=== PATIENT | female | born 1975 | race Two or more races ===

== ENCOUNTER 2021-07-23 19:00 | Emergency (ER) | payer MEDICARE, MEDICAID, SELFPAY ==
--- NOTE | ~2021-07-23 | XR_ITS ---
EXAMINATION: XR ELBOW, LEFT CLINICAL INFORMATION: Fall COMPARISON: None TECHNIQUE: 4 plain film views of the left elbow. FINDINGS: Elbow joint effusion is noted. Minimally displaced fracture through the radial head and extending to the radial neck. Minimal step-off to the articular surface. Otherwise bones are in normal anatomic alignment. XR/XR elbow LT 2V IMPRESSION: Minimally displaced radial head fracture with associated elbow joint effusion.
[2021-07-23 19:21] VITALS: BP 148/83; PULSE 70; RESP 18; TEMP 37; O2SAT 100; BMI 31.2
--- NOTE | 2021-07-23 19:47 | ED_ITS ---
HPI - Extremity Problem General Chief complaint: Extremity Injury, Upper Stated complaint: broken arm? Time Seen by Provider: 07/23/21 19:47 Source: patient Mode of arrival: ambulatory Limitations: no limitations History of Present Illness HPI Narrative: 46 year old female presents with left arm/elbow pain X2 hours. Patient tells me she fell off of a hover board onto an outstreched arm and since then has been experiencing 10 of 10 pain to the elbow, she tells me she is unable to move and at times she feels numbness and tingling to her fingers. No surgeries on the left-hand side. Patient is right-hand dominant. MD Complaint: extremity pain Onset (ago): hour(s) (2) Pain Consistency: constant Location: left Severity scale (1-10): 10 Quality: sharp and constant Radiation: none Relieving factors: immobilization Exacerbating factors: range of motion Associated symptoms: denies other symptoms Related Data Previous Rx's Medication Instructions Recorded oxycodone 5 mg capsule 5 mg PO BID PRN #8 cap 07/23/21 Allergies Allergy/AdvReac Type Severity Reaction Status Date / Time No Known Allergies [NKA] Allergy Verified 07/23/21 19:20 Review of Systems Review of Systems: Constitutional : No Weight loss, No Fever, No Chills, No Fatigue, No Malaise ENT/Mouth : No sore throat, No Rhinorrhea Eyes: No Eye Pain, No Swelling, No Redness Cardiovascular : No Chest Pain, No SOB, No Dyspnea on Exertion, No Orthopnea, No Edema, No Palpitations Respiratory : No Cough, No Sputum, No Wheezing Gastrointestinal : No Nausea, No Vomiting, No Diarrhea, No Constipation, No abdominal Pain, No Hematochezia, No Melena Genitourinary : No Dysuria, No Urinary Frequency, No Hematuria, Musculoskeletal : + joint pain, No Myalgias, No Joint Swelling Skin : No Skin Lesions, No rash Neuro : No Weakness, No Numbness, No Dizziness, No Headache All other systems reviewed and are negative Yes all other systems are reviewed and are negative [facility] Past Medical History Attestation statement: The following information was validated with the patient. Source: old records reviewed and nursing notes reviewed Social History Social History Advance Directives: No Advance Directives Information Provided: Yes Patient : No Physical Exam Vital Signs: Vital Signs: Last Vital Signs Temp 98.6 F 07/23/21 19:21 Pulse 70 07/23/21 19:21 Resp 18 07/23/21 19:21 BP 148/83 H 07/23/21 19:21 Pulse Ox 100 07/23/21 19:21 BMI result Body Mass Index 31.2 VSS Appearance: Alert.? Oriented X3.? No acute distress.? Head: Normocephalic, atraumatic, no step-offs or deformities Eyes: Pupils equal, round and reactive to light.? ENT: Pharynx normal.? Neck: Normal inspection.? Neck supple.? CVS: Normal heart rate and rhythm.? Pulses normal.? Respiratory: No respiratory distress.? Breath sounds normal.? Abdomen: Soft and nontender.? Skin: Skin warm and dry.? Normal skin color.? Normal skin turgor.? Extremities: 5/5 strength to right upper and b/l lower extremities, + decreased strength and pain with rom of left elbow, pain with supination and pronation on left side. No wrist drop bilaterally. Sensation and motor intact b/l however. No overlying skin changes. Pain with palpation over radial aspect of elbow. No evident ligament or tendon involvement Back: No midline tenderness, no C-spine tenderness, full range of motion, no CVA tenderness bilaterally Neuro: Oriented X 3.? No motor deficit.? No sensory deficit. Course Reevaluation(s) Reevaluation #1: X-ray shows a minimally displaced radial head fracture with associated elbow joint effusion. Will TT ortho. Time: 19:53 Reevaluation #2: Hallie Waldrop recommends a sugartong splint and outpatient follow up with ortho. Time: 20:07 Reevaluation #3: Sugar-tong splint placed, patient tolerated procedure well. Oxycodone has been sent to her pharmacy. Here she has been given oxycodone. Patient will follow-up with orthopedics outpatient. I have advised her to return to the emergency department with new or worsening symptoms. Time: 20:16 MDM - Extremity (Nontraumatic) MDM Narrative Medical decision making narrative: 1953 46 year old f presents w/ left elbow pain s/p falling off a hover board. She reports intermittent paresthesias and numbness. PE 5/5 strength to right upper and b/l lower extremities, + decreased strength and pain with rom of left elbow, pain with supination and pronation on left side. No wrist drop bilaterally. Sensation and motor intact b/l however. No overlying skin changes. Pain with palpation over radial aspect of elbow. Plan Xray Medical Records Attestation: I reviewed the patient's medical records. Lab Data Attestation: I reviewed the patient's lab results. Critical Care Time Critical Care Time Critical Care Time: No Discharge Plan Discharge Clinical Impression: Closed fracture of radial head Patient Disposition: Home, Self-Care Instructions: Arm Fracture in Adults (ED), Elbow Fracture (ED) Additional Instructions: Take your medications as prescribed. If you were prescribed antibiotics today, it is important that you take your medication to their entirety, do not skip any doses, do not finish them early. Follow-up with your primary care provider this week. Return to the emergency department with new or worsening symptoms. In case of emergency call 911 Please wear your splint, do not get it wet. Follow-up with orthopedics within the next few days. Pain medication has been sent to pharmacy please do not drive or operate machinery with this medication. If you do not want to take this pain medication you can take ibuprofen every 6 hours, Tylenol every 4. I attest that I have reviewed patients [place], and at the time prescribing the patient a controlled substance is appropriate based off of patients diagnosis and treatment plan. Prescriptions: New oxycodone 5 mg capsule 5 mg PO BID PRN (Reason: pain) Qty: 8 RF: 0 Referrals: Shilo Grant MD [Primary Care Provider] - 2 days Kristy Duque MD [Physician] - 2 days Stand Alone Forms: Work/School Release
[2021-07-23] MEDS: oxyCODONE HCl Immed Release 5 MG TABLET PO (20:45)
== END 2021-07-23 20:50 | disposition home or self-care (01) ==
PROVIDERS: Emergency Provider Internal Medicine; PCP Internal Medicine
DX: S52.92XA Unspecified fracture of left forearm, initial encounter for closed fracture (principal); M25.522 Pain in left elbow; W01.0XXA Fall on same level from slipping, tripping and stumbling without subsequent striking against object, initial encounter; Y93.9 Activity, unspecified; Y92.9 Unspecified place or not applicable; Y99.9 Unspecified external cause status
CPT/HCPCS: 73070; 99284

== ENCOUNTER → 2021-07-25 13:42 | Outpatient (BNVA) | payer MEDICARE, MEDICAID, SELFPAY | PROVIDERS: PCP Internal Medicine; Visit Provider Physician Assistant | DX: S52.125A Nondisplaced fracture of head of left radius, initial encounter for closed fracture (principal) | CPT/HCPCS: 99202 ==

== ENCOUNTER 2021-08-08 06:35 | Outpatient (REF) | payer MEDICARE, MEDICAID, SELFPAY ==
--- NOTE | ~2021-08-08 | XR_ITS ---
EXAMINATION: XR ELBOW, LEFT CLINICAL INFORMATION: Left elbow pain. COMPARISON: 07/23/2021. TECHNIQUE: AP, lateral, and oblique views of the left elbow. FINDINGS: There is an intra-articular fracture at the volar/lateral half of the radial head with minimal articular cortical depression (1 mm). This fracture is unchanged as compared to prior. No new fractures are identified. Small elbow joint effusion is improved as compared to prior. Joint spaces are normal. XR/XR elbow LT min 3V IMPRESSION: Unchanged alignment of the intra-articular radial head fracture.
== END 2021-08-08 06:36 | disposition home or self-care (01) ==
LOC: HO.HOSX 06:35
PROVIDERS: Visit Provider Physician Assistant
DX: S52.123D Displaced fracture of head of unspecified radius, subsequent encounter for closed fracture with routine healing (principal)
CPT/HCPCS: 73080; 99212

== ENCOUNTER 2021-08-26 09:40 | Outpatient (RCR) | payer MEDICARE, MEDICAID, SELFPAY ==
--- NOTE | 2021-08-26 12:12 | MHC.OT.OEV ---
[address] [phone] F: [phone] Occupational Therapy Evaluation Diagnosis: intra-articular radial head fracture, non-displaced Date of Onset: 07/23/21 Attending Provider: Kavitha Martin PA-C, MD Follow Up Appointment: 09/05/21 History of Current Condition: 07/23/21 Pt presented to the ED for falling off a hoverboard and landing on her left arm. X-Ray showed a minimally displaced radial head fx. Pt put in a sugar tong splint. 07/25/21 Orthopedic consult, pt put into sling, pain with supination/pronation. No lifting, referred to therapy services. Significant Medical History: Thyroid cancer - January 2016 Precautions/Contraindications: No lifting > cell phone Patient Goals: Get back to normal life with no pain with activity. 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 Living Situation, Family and/or Social Support: Lives in house with kids. 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 Sleep: No trouble sleeping Driving: Drives with right hand, because grabbing wheel and twisting is painful for left elbow. Pain Assessment Pain Score: 0 Pain Scale Used: Pain Location and Description: No pain at rest. When aggravated 8/10 pain. Pain in extensors, cubital fossa and lateral elbow. Sensitivity to cold. Aggravating Factors: twisting mop, sweeping floors, gripping/twisting jars Alleviating Factors: no trial of ibuprofen no trial of heat or ice Skin and Soft Tissue Assessment Skin and Soft Tissue: Swelling Comments: Mild edema of lateral elbow Nerve assessment Ulnar Nerve: WNL Median Nerve: WNL Radial Nerve: WNL Comments: Pain in left thumb when testing for radial nerve, thumb abd resistance. Sensory Assessment Light Touch: WFL Edema Assessment Upper Extremity: Left Impaired Lower Extremity: Comments: Some edema in left lateral elbow Dexterity Assessment Dexterity: WNL AROM(PROM) Strength Cervical Cervical Flexion: Cervical Extension: Cervical Lateral Flexion: Cervical Rotation: Comments: WNL Shoulder Flexion: Extension: Abduction: Internal Rotation: External Rotation: Comments: WFL, some discomfort w/ full flexion due to stretching Flexion: Extension: Abduction: Internal Rotation: External Rotation: Comments: Elbow Flexion: L 125 Extension: L 13 Pronation: L 72 Supination: L 90 Comments: Pt observed to have functional range in pro/sup, no pull or pain with range/movement Flexion: Extension: Pronation: Supination: Comments: Wrist Flexion: Extension: Ulnar Deviation: Radial Deviation: Comments: WFL Flexion: Extension: Ulnar Deviation: Radial Deviation: Comments: Thumb Thumb CMC Flexion: Thumb MCP Flexion: Thumb IP Flexion: Radial Abduction: Palmar Abduction: Laporte (Kapandji 0-10): Comments: WFL Digits Index MCP: PIP: DIP: Long MCP: PIP: DIP: Ring MCP: PIP: DIP: Small MCP: PIP: DIP: Comments: WFL B/L'ly B/L D4 swam neck deformities Gross Grasp: R 59 L 35 Lateral Pinch: Two-Point Pinch: Three-Jaw Amaury: Comments: submaximal rolled gold plater Patient Education Primary Language: [facility] Required: No Current Knowledge: Understands information with skills for self-management Teaching Method: Demonstration Handouts Education Needs Identified on Evaluation: ADL's Disease Information Exercise Pain Safety How did patient/family demonstrate learning? Patient demonstrates Patient verbalizes Barriers to Learning: None Readiness for Learning: Accepting Who was educated? Patient Comments: Plan of Care Assessment: 46 yo female who presented to the ED on 07/23/21 for falling off a hover board. Pt had left intra-articular radial head fracture - non-displaced. Pt was put in a sugar tong splint and then a sling during ortho consult on 07/25/21. Pt reports she no longer wears the sling. She is pain free at rest and has 8/10 pain with aggravating activities such as wringing out a mop, opening jars and sweeping floors. Pt with slightly decreased end range elbow flex and ext, although WFL and has some pain with full elbow ext and full shoulder flex. Decreased rolled gold plater strength on left side. Pt to cont OT services for pain management, increase strength with functional tasks, and continue to improve AROM with decreased pain. STG Duration: 2 weeks Short Term Goals: Pt to have good follow through with HEP Pt to have left elbow ext <10 degrees Pt to increase rolled gold plater strength to >40lbs Pt to report pain <3/10 during activity LTG Duration: 4 weeks Java Enterprise Architect Goals: Pt to increase rolled gold plater strength to >50lbs Pt Quickdash <15 Pt to report pain <1/10 during activity Elbow ROM within 5 degrees of right side for flex, ext, pro and sup Frequency and Duration: The patient will be seen 2x/week for 4 weeks Treatment Plan: Therapeutic Exercise Therapeutic Activity Home Exercise Program Patient Education Edema Control ADL Training MHP Joint Mobilization Soft Tissue Mobilization Kinesiotaping Electronically Signed By: Alexa Liu OT/s Reviewed/agree with student documentation: Yes Therapist: Ankita Benavidez OTR/L CHT Please sign and return to therapist, Thank you for your referral.
--- NOTE | 2021-09-02 11:13 | MHC.OT.DC ---
[address] [phone] F: [phone] Occupational Therapy Discharge Note Provider: Kavitha Martin PA-C Diagnosis: intra-articular radial head fracture, non-displaced Date of Discharge: 09/02/21 Treatments to Date: 1 Cancellations to Date: 1 Discharge Status: Patient Elected to Stop Discharge Summary: Madelaine was seen for initial OT assessment last week and given HEP and recommendations. Pt reported low pain and able to functionally complete all tasks. Pt elected to d/c self, as she is Ind with self-management. Electronically Signed By: Alexa Liu OT/s Reviewed/agree with student documentation: Yes Therapist: Ankita Benavidez OTR/L CHT Please Sign and return to therapist, thank you for your referral.
== END 2021-09-02 11:13 | disposition home or self-care (01) ==
LOC: HO.OT 09:40
PROVIDERS: PCP Internal Medicine; Visit Provider Physician Assistant
DX: S52.123A Displaced fracture of head of unspecified radius, initial encounter for closed fracture (principal)
CPT/HCPCS: 97110; 97140; 97165

== ENCOUNTER 2021-09-05 08:32 | Outpatient (REF) | payer MEDICARE, MEDICAID, SELFPAY ==
--- NOTE | ~2021-09-05 | XR_ITS ---
EXAMINATION: XR ELBOW, LEFT CLINICAL INFORMATION: Left elbow pain COMPARISON: 08/08/2021 TECHNIQUE: AP, lateral, and oblique views of the left elbow. FINDINGS: Redemonstration of the radial head fracture with unchanged alignment from prior. The fracture line remains evident. Joint spaces at the elbow are maintained. No elbow joint effusion. The soft tissues are unremarkable. XR/XR elbow LT min 3V IMPRESSION: Unchanged alignment of the intra-articular radial head fracture.
== END 2021-09-05 08:33 | disposition home or self-care (01) ==
LOC: HO.HOSX 08:32
PROVIDERS: Visit Provider Physician Assistant
DX: S52.123D Displaced fracture of head of unspecified radius, subsequent encounter for closed fracture with routine healing (principal)
CPT/HCPCS: 73080; 99212

== ENCOUNTER 2024-03-15 09:15 | Observation (INO) | payer MEDICARE, MEDICAID, SELFPAY ==
--- NOTE | 2024-03-15 | ECG_ITS ---
Test Reason : CP Blood Pressure : / mmHG Vent. Rate : 051 BPM Atrial Rate : 051 BPM P-R Int : 172 ms QRS Dur : 090 ms QT Int : 440 ms P-R-T Axes : 023 017 020 degrees QTc Int : 405 ms Sinus bradycardia Otherwise normal ECG No previous ECGs available Referred By: Generic ED Physician Electronically Signed By:JOSE CRUZ LOVETT
--- NOTE | ~2024-03-15 | XR_ITS ---
EXAMINATION: XR CHEST CLINICAL INFORMATION: Chest pain COMPARISON: None available. TECHNIQUE: 2 views of the chest were obtained. FINDINGS: No focal consolidation. No pneumothorax. Trachea is midline. Cardiac mediastinal silhouette is not enlarged. No large pleural effusion. Osseous structures are intact. Soft tissues are unremarkable. Surgical clips right upper abdomen. XR/XR chest 2V IMPRESSION: No acute cardiopulmonary process. Electronically signed by: Paula Baca MD 03/15/2024 01:01 PM EDT
[2024-03-15 09:23] VITALS: BP 166/100; BP 175/103; PULSE 54; PULSE 58; RESP 15; TEMP 36.6; O2SAT 100; O2SAT 99; BMI 29.0
--- NOTE | 2024-03-15 09:40 | PC.NURSE ---
Pt BIBA for CP starting this morning around 0830am. Pt states she was at work this morning when the acute, sharp, cp started. She states it radiates to her back and down her left arm, numbness/tingling in her left arm/hand. CMS intact, able to feel sensation in her left arm/hand. No cardiac hx, she has never had this pain before. She states the pain worsens with deep inspiration, and is slightly alleviated while sitting up. A/ox4, respirations even and unlabored, no increased wob/sob noted, s1 and s2 heard, pt sinus dana on quality assurance monitor chassis, HR- 50s, abdomen soft, non-tender. Plan for labs and ekg, call pfeiffer within reach, all needs met at this time.
[2024-03-15 10:00] LABS: MANUAL DIFF FLAG NO
[2024-03-15 10:02] LABS: Basophils Percent Auto 0.3 % (0-2); Eosinophils Absolute Auto 0.1 X10*3/uL (0.0-0.4); Eosinophils Percent Auto 1.9 % (0-4); Hematocrit 37.4 % (37.0-47.0); Hemoglobin 12.9 g/dl (12.0-16.0); Imm Gran Abs Auto 0.02 X10*3/uL (0.00-0.03); Imm Gran Pct Auto 0.3 % (0.0-0.4); Lymphocytes Absolute Auto 2.5 X10*3/uL (1.2-4.9); Lymphocytes Percent Auto 42.3 % (20-40); Mean Corpuscular HGB Conc 34.5 g/dl (31.0-35.0); Mean Corpuscular Hemoglobin 32.2 pg (27.0-33.0); Mean Corpuscular Volume 93.3 fL (80.0-98.0); Mean Platelet Volume 9.4 fL (9.4-12.3); Monocytes Absolute Auto 0.4 X10*3/uL (0.1-1.2); Monocytes Percent Auto 6.8 % (2-11); Neutrophils Absolute Auto 2.8 x10*3/uL (2.0-8.3); Neutrophils Percent Auto 48.4 % (45-73); Platelet Count 219 X10*3/uL (160-400); Red Blood Count 4.01 X10*6/uL (4.20-5.50); Red Cell Distribution Width 13.2 % (11.0-16.0); White Blood Count 5.9 X10*3/uL (4.8-10.8)
--- NOTE | 2024-03-15 10:07 | ED_ITS ---
HPI - Chest Pain General Chief Complaint: Chest Pain Stated Complaint: CP, HTN Time Seen by Provider: 03/15/24 10:02 Source: patient and RN notes reviewed Mode of arrival: ambulatory Limitations: no limitations History of Present Illness ED Provider: Ju Yun PA-C HPI narrative: This is a 48-year-old female, with a past medical history of thyroid cancer, HTN, smoker, who presents emergency department with acute onset chest pain which started at 8:30 a.m. this morning while she was at work. Patient states that she had a normal day and was at work when suddenly she developed a sharp left- sided chest pain with numbness down her left arm and tingling into her fingers with associated diaphoresis and nausea. She states that the sharp chest pain lasted for approximately 10-15 minutes. The ambulance was called and she took aspirin. EMS also gave her nitro. She states that the pain alleviated after several minutes after taking the nitroglycerin. She states that she has not had sharp pain in her chest since. She now reports just a soreness sensation in the left side of her chest and into her left arm. She states that her mother had a heart attack at age 52. Upon my assessment, she only is complaining of some soreness in her chest, otherwise no other pain. She denies any recent travel, surgeries, hospitalizations. No history of blood clots. No other complaints or concerns at this time. MD complaint: chest pain and chest discomfort Onset (ago): minute(s) Timing of current episode: episodic Prior episodes: No Onset: during rest Pain location: left chest Pain radiation: left arm Severity: moderate Quality: aching Relieving factors: nitroglycerin Exacerbating factors: nothing Treatment prior to arrival: aspirin and nitroglycerin Risk Factors Coronary artery disease risk factors: none Thoracic aortic dissection risk factors: none Related Data On Oral Contraceptives: No Home Medications ?Medication ?Instructions ?Recorded ?Confirmed levothyroxine 175 mcg tablet 175 mcg PO MOTUWETHFRSA@62903/15/24 03/15/24 levothyroxine 175 mcg tablet 350 mcg PO WILDER@62903/15/24 03/15/24 losartan 50 mg tablet 50 mg PO DAILY 03/15/24 03/15/24 melatonin 5 mg tablet 5 mg PO BEDTIME PRN Insomnia 03/15/24 03/15/24 Allergies Allergy/AdvReac Type Severity Reaction Status Date / Time No Known Allergies [NKA] Allergy Verified 03/15/24 09:26 Review of Systems 2 Review of Systems: Yes all other systems are reviewed and are negative Constitutional: Constitutional: Reports as per [facility] Past Medical History Attestation statement: The following information was validated with the patient. 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 Physical Exam 2 Vital Signs: Vital Signs: Last Vital Signs Temp 98.1 F 03/15/24 19:53 Pulse 55 03/15/24 19:53 Resp 20 03/15/24 19:53 BP 162/68 H 03/15/24 19:53 Pulse Ox 99 03/15/24 19:53 O2 Del Method Room Air 03/15/24 19:53 BMI result Body Mass Index 29.0 Const: General: cooperative, comfortable and no acute distress O rientation/consciousness: patient oriented x3 Limitations: no limitations HEENT: Head: Yes normal to inspection, Yes normocephalic and Yes atraumatic Ears: hearing grossly normal bilaterally General nose exam: Normal external nose present Face and sinus: Yes normal facial exam Mouth: Normal oral and palatal mucosa present, oropharynx normal and moist mucous membranes Throat: Yes posterior oropharynx normal Eyes: General: appearance normal, both eyes and all related structures E yelids: Yes eyelids normal Conjunctivae: conjunctivae normal Sclerae: s clerae normal Pupils: Equal, round and reactive pupils present EOM: EOMs intact bilaterally Neck: Neck: Yes normal visual inspection, Yes full ROM and Yes no lymphadenopathy Lymphatic: no lymphadenopathy noted Chest: Other: Tenderness palpation along the left anterior chest wall. Chest palpation & inspection: normal inspection of the chest Resp: Effort & Inspection: normal respiratory effort and able to speak in complete sentences Auscultation: clear to auscultation bilaterally, no crackles, no rales, no rhonchi and no wheezes Cardio: Rate: regular rate Rhythm: regular rhythm Heart sounds: S1 normal heart sound present and S2 normal heart sound present GI: Inspection: Yes normal to inspection Skin: General skin exam: no rashes or lesions noted Trauma: no lacerations or abrasions Wounds: no wounds Neuro: General: patient oriented x3 and moves all extremities Cranial nerves: Yes Equal, round and reactive pupils present Extrem: Other: No no lower extremity edema noted. General: Yes normal to inspection Right upper extremity: normal to inspection Left upper extremity: normal to inspection Right lower extremity: normal to inspection Left lower extremity: normal to inspection Course Reevaluation(s) Reevaluation #1: Second troponin returns, is 5.3. Chest x-ray revealing no acute cardiopulmonary process. Discussed case with teacher hearing impaired, Dr. Buck. Given patient had improvement after nitro, continues to have soreness to her left side of her chest, with a high heart score without any formal cardio diagnostic test performed, she would benefit from hospitalization. I discussed case with my attending physician, Dr. Courtney who is in agreement. I discussed case with Dr. Buck as well as hospitalist. Dr. Buck does not feel as though this is cardiac in nature. Hospitalist does not see a need for hospitalization at this time. I discussed in detail with my attending physician Dr. Courtney and given risk factors, presentation, heart score, difficulty following up with PCP, Cardiology, patient will benefit with hospitalization. Time: 14:29 Reevaluation #2: Attending addendum: Case discussed with me. I saw the patient in real time. She states today at work she had sudden onset severe left sided stabbing chest pain that radiated into her left arm causing transient numbness. Associated with whole body diaphoresis and nausea without vomiting. Patient notified her co- workers who called EMS and gave her baby aspirin. On EMS arrival patient was still having pain. She was treated with SL Nitro with resolution of pain within 2 - 3 min. She remained with a deep tightness to her left-sided chest and left- upper back similar to a squeezing pain. She denies any history of prior similar symptoms. She has a concerning cardiac history in a mother with a myocardial infarction at age [age] years old. The patient has a history of HTN and is a smoker. I discussed the patient with cardiology Dr. Buck. I discussed the patient with the hospitalist. At this time I recommend admission for concerning cardiac symptoms/history, heart score 5, continued chest discomfort, and lack of reliable follow up with out-patient PCP/Cardiology. Patient is in agreement with plan for admission and further cardiac testing. Time: 16:24 Medications Administered Generic Name Dose Route Start Last Admin Trade Name Greyson PRN Reason Stop Dose Admin Enoxaparin Sodium 40 mg 03/15/24 17:00 03/15/24 17:16 Enoxaparin Sodium 40 Mg/0.4 Ml Syringe SUBCUT 40 mg Q24H VIVIANA Administration Medical Decision Making Medical Decision Making [facility] Narrative: This is a 48-year-old female who presents emergency department with complaints of acute onset left-sided chest pain. On arrival, blood pressure elevated 166/100, all other vital signs within normal limits. EKG was performed prior to my assessment, normal sinus rhythm with no ST elevation or depression. She is a smoker, history of hypertension. She is being worked out to see if she has hyperlipidemia as well. No cardiac history. Story is concerning for ACS. She has a heart score of 5. Patient reports that she is not having any stabbing pain anymore, states that she does have some soreness to the left side of her chest. Plan: Labs, EKG, CXR, dimer, serial trops, fondant puff maker. Differential Diagnosis Differential Diagnoses: The differential diagnosis associated with the presentation includes ACS, STEMI, NSTEMI, costochondritis, pneumonia, pneumothorax, PE Admission/Observation Consideration of admission/observation: Escalation of care including admission/observation considered Lab Data [facility] Lab Attestation statement: I reviewed the patient's lab results. No leukocytosis, stable H&H, troponin 3.7, repeat 5.3 03/15/24 09:57 03/15/24 09:57 Labs: Lab Results 03/15/24 03/15/24 Range/Units 09:57 13:08 WBC 5.9 (4.8-10.8) X10*3/uL RBC 4.01 L (4.20-5.50) X10*6/uL Hgb 12.9 (12.0-16.0) g/dl Hct 37.4 (37.0-47.0) % MCV 93.3 (80.0-98.0) fL MCH 32.2 (27.0-33.0) pg MCHC 34.5 (31.0-35.0) g/dl RDW 13.2 (11.0-16.0) % Plt Count 219 (160-400) X10*3/uL MPV 9.4 (9.4-12.3) fL Immature Gran % (Auto) 0.3 (0.0-0.4) % Neut % (Auto) 48.4 (45-73) % Lymph % (Auto) 42.3 H (20-40) % [place] % (Auto) 6.8 (2-11) % Eos % (Auto) 1.9 (0-4) % Baso % (Auto) 0.3 (0-2) % Lymph # (Auto) 2.5 (1.2-4.9) X10*3/uL [place] # (Auto) 0.4 (0.1-1.2) X10*3/uL Eos # (Auto) 0.1 (0.0-0.4) X10*3/uL Baso # (Auto) 0.0 (0.0-0.2) X10*3/uL Abs Immat Gran (auto) 0.02 (0.00-0.03) X10*3/uL Absolute Neuts (auto) 2.8 (2.0-8.3) x10*3/uL Absolute Nucleated RBC 0.000 (0.0-0.012) X10*3/uL Nucleated RBC % (auto) 0.0 (0.0-0.2) /100WBC PT 12.0 (11.1-13.3) SEC INR 1.0 (0.9-1.1) D-Dimer High Sensitivty 224 NG/ML Sodium 141 (135-145) mmol/L Potassium 4.0 (3.3-5.1) mmol/L Chloride 109 H (96-108) mmol/L Carbon Dioxide 26 (22-29) mmol/L Anion Gap 10 L (12-20) BUN 9 (9-16) mg/dL Creatinine 0.70 (0.5-1.4) mg/dL Estim Creat Clear Calc 92.8 Estimated GFR > 60 Random Glucose 106 (60-115) mg/dL Calcium 9.6 (8.4-10.2) mg/dL Magnesium 2.0 (1.6-2.6) mg/dL Total Bilirubin 0.3 (0.0-1.0) mg/dL AST 18 (5-31) U/L ALT 12 (0-31) U/L Alkaline Phosphatase 76 (39-117) U/L Troponin I High Sens 3.7 5.3 (<3.5-17.0) ng/L Total Protein 7.4 (6.5-8.0) g/dL Albumin 4.5 (3.5-5.0) g/dL Independent Interpretation I performed an independent interpretation of an: EKG Interpretation: EKG sinus bradycardic at 51bpm, no ST elevation or depression. Repeat EKG: sinus bradycardic at 48bpm, no ST elevation or depression Vent. Rate : 051 BPM Atrial Rate : 051 BPM P-R Int : 172 ms QRS Dur : 090 ms QT Int : 440 ms P-R-T Axes : 023 017 020 degrees QTc Int : 405 ms Sinus bradycardia Otherwise normal ECG No previous ECGs available Vent. Rate : 048 BPM Atrial Rate : 048 BPM P-R Int : 178 ms QRS Dur : 088 ms QT Int : 468 ms P-R-T Axes : 013 009 004 degrees QTc Int : 418 ms Sinus bradycardia Otherwise normal ECG When compared with ECG of 15-MAR-2024 09:21, No significant change was found Radiology Impression Discussion of test interpretation with radiology: I have reviewed the radiologist's reading. Radiologist Impression: XR/XR chest 2V IMPRESSION: No acute cardiopulmonary process. Electronically signed by: Paula Baca MD 03/15/2024 01:01 PM EDT RP Dictated By: Paula Baca MD Scores Heart Score History: -2- highly suspicious ECG: -0- normal Age: -1- >45 - <65 Risk factory: -2- 3 or more risk factors or treated atherosclerosis Troponin: -0- < or = normal limit Score: 5 Risk: 16.6% Critical Care Time Critical Care Time Critical Care Time: Yes Total Critical Care Time: 35 Attestation: I have personally provided critical care time exclusive of time spent on separately billable procedures. Time includes review of lab data, radiology results, discussion with consultants, and monitoring for potential decompensation. Intervention performed as documented. Discharge Plan Discharge Clinical Impression: Atypical chest pain Patient Disposition: Admitted As Inpatient
[2024-03-15 10:22] LABS: Alanine Aminotransferase 12 U/L (0-31); Albumin Level 4.5 g/dL (3.5-5.0); Alkaline Phosphatase 76 U/L (39-117); Anion Gap 10 (12-20); Aspartate Amino Transferase 18 U/L (5-31); Bilirubin Total 0.3 mg/dL (0.0-1.0); Blood Urea Nitrogen 9 mg/dL (9-16); Calcium 9.6 mg/dL (8.4-10.2); Carbon Dioxide 26 mmol/L (22-29); Chloride 109 mmol/L (96-108); Creatinine Clr Calc Pharmacy 92.8; Estimated Glomerular Filt Rate > 60; Glucose Random 106 mg/dL (60-115); Sodium 141 mmol/L (135-145); Total Protein 7.4 g/dL (6.5-8.0)
[2024-03-15 10:30] VITALS: BP 142/77; PULSE 48; RESP 12; O2SAT 98
[2024-03-15 10:30] LABS: Troponin-I High Sensitivity 3.7 ng/L (<3.5-17.0)
[2024-03-15 11:44] LABS: D Dimer High Sensitivity 224 NG/ML
--- NOTE | 2024-03-15 11:53 | ECG_ITS ---
Test Reason : CP Blood Pressure : / mmHG Vent. Rate : 048 BPM Atrial Rate : 048 BPM P-R Int : 178 ms QRS Dur : 088 ms QT Int : 468 ms P-R-T Axes : 013 009 004 degrees QTc Int : 418 ms Sinus bradycardia Otherwise normal ECG When compared with ECG of 15-MAR-2024 09:21, No significant change was found Referred By: Ju Yun Electronically Signed By:JOSE CRUZ LOVETT
[2024-03-15 13:40] LABS: Troponin-I High Sensitivity 5.3 ng/L (<3.5-17.0)
[2024-03-15 15:23] VITALS: BP 165/84; PULSE 52; RESP 16; TEMP 36.8; O2SAT 97
--- NOTE | 2024-03-15 16:48 | P.HPHOSP_ITS ---
History of Present Illness Date of Service: 03/15/24 Chief Complaint: Chest pain 48-year-old female past medical history of thyroid cancer status post resection hypertension who presents to the emergency room with acute onset of left-sided chest pain at 08:30 this morning. She states the pain lasts for approximately 10-15 minutes and then resolved. She denies any other associated cardiac symptoms. Workup in the emergency room failed to demonstrate any significant abnormalities and EKG or enzymes however patient will be admitted overnight for observation enzymes will be trended in a.m. 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 Meds Allergies Allergy/AdvReac Type Severity Reaction Status Date / Time No Known Allergies [NKA] Allergy Verified 03/15/24 09:26 Home Medications ?Medication ?Instructions ?Recorded ?Confirmed ?Last Taken ?Type losartan 50 mg tablet 50 mg PO DAILY 03/15/24 Unknown History Physical Exam 2 Vital Signs and Narrative: Vital Signs: Last Vital Signs Temp 98.2 F 03/15/24 15:23 Pulse 52 03/15/24 15:23 Resp 16 03/15/24 15:23 BP 165/84 H 03/15/24 15:23 Pulse Ox 97 03/15/24 15:23 O2 Del Method Room Air 03/15/24 15:23 BMI result Body Mass Index 29.0 Const: Other: Awake alert oriented x3 no acute distress Resp: Other: Clear to auscultation bilaterally no rales rhonchi or wheezes Cardio: Other: No S4; positive S1-S2; no S3 murmurs rubs or gallops GI: Other: Soft nontender nondistended normoactive bowel sounds Neuro: Other: Cranial nerves 2 through 12 grossly intact as tested. Motor 5 out of 5 all extremities. Sensation intact. Cognition appropriate. Gait steady Extrem: Other: No edema bilaterally Results Labs 03/15/24 09:57 03/15/24 09:57 Labs: Laboratory Results - last 24 hr 03/15/24 03/15/24 09:57 13:08 MCV 93.3 MCH 32.2 MCHC 34.5 RDW 13.2 Plt Count 219 MPV 9.4 Immature Gran % (Auto) 0.3 Neut % (Auto) 48.4 Lymph % (Auto) 42.3 H [place] % (Auto) 6.8 Eos % (Auto) 1.9 Baso % (Auto) 0.3 Lymph # (Auto) 2.5 [place] # (Auto) 0.4 Eos # (Auto) 0.1 Baso # (Auto) 0.0 Abs Immat Gran (auto) 0.02 Absolute Neuts (auto) 2.8 Absolute Nucleated RBC 0.000 Nucleated RBC % (auto) 0.0 PT 12.0 INR 1.0 D-Dimer High Sensitivty 224 Anion Gap 10 L Estim Creat Clear Calc 92.8 Estimated GFR > 60 Random Glucose 106 Calcium 9.6 Magnesium 2.0 Total Bilirubin 0.3 AST 18 ALT 12 Alkaline Phosphatase 76 Troponin I High Sens 3.7 5.3 Total Protein 7.4 Albumin 4.5 Imaging Radiologist's Impressions: Impressions Chest X-Ray 03/15/24 12:02 IMPRESSION: No acute cardiopulmonary process. Electronically signed by: Paula Baca MD 03/15/2024 01:01 PM EDT RP Assessment and Plan (1) Chest pain: Qualifiers: Chest pain type: unspecified Qualified Code(s): R07.9 - Chest pain, unspecified Status: Acute (2) Hypothyroidism: Qualifiers: Hypothyroidism type: postoperative Qualified Code(s): E89.0 - Postprocedural hypothyroidism Status: Acute Plan 48-year-old female with no family history of cardiac disease nor cardiac disease herself presents with 15 minutes of left-sided chest pain that was self- limiting. She presented to the ER where initial workup failed to demonstrate anything acute related to EKG or enzymes. She will be admitted observation overnight on telemetry and re-evaluated in a.m. 1. Chest pain (likely atypical) -admit telemetry -recheck enzymes in a.m. -consider cardiology consult at that time if appropriate 2. Hypothyroidism (surgically induced) -continue outpatient supplements Full code Lovenox We will require 1 midnight of observation to document atypical nature of chest pain Quality Stroke Does the patient have a stroke diagnosis?: No VTE Prior VTE?: No VTE Risk Level:: Medical - moderate - high VTE Device Contraindication: Treatment Not Indicated VTE Drug Contraindication: N/A - Med Ordered
[2024-03-15] MEDS: Enoxaparin Sodium 40 MG/0.4 ML SYRINGE SUBCUT (17:16)
--- NOTE | 2024-03-15 17:19 | PC.NURSE ---
assumed care of pt at 1500, pt a&o4, resting quietly in bed, vss, 20G PIV left AC. sinus dana on monitor - consistent w vital signs throughout stay, provider aware. pt continues to report 2/10 left chest pain but verbalizes tolerance of pain. plan for med tele admission, pt pending bed assignment. no new orders at this time.
--- NOTE | 2024-03-15 18:16 | PHA.MEDREC ---
Pharmacy Consult ? Medication Reconciliation Pharmacy has completed the medication reconciliation.
--- NOTE | 2024-03-15 19:47 | PC.NURSE ---
pt states she would like to leave as her pain as resolved. she states she understands her results and would like to get the stress test done outpatient. She states she has autistic kids at home. MD Mihai Mayfield aware.
[2024-03-15 19:53] VITALS: BP 162/68; PULSE 55; RESP 20; TEMP 36.7; O2SAT 99
--- NOTE | 2024-03-15 20:28 | P.DS_ITS ---
DS: Providers Provider Date of Service: 03/15/24 Date of admission: 03/15/24 16:45 Date of discharge: 03/15/24 Primary care physician: Emelia Mahoney MD Attending physician on admission: Olman Martin Consults: 03/15/24 14:48 Consult to Cardiology Stat Consulting Provider: [facility] – [place] [facility] Reason for consultation: Chest pain Has provider been notified: Yes Attending physician on discharge: Anamaria Mayfield Discharging clinician: Padmini Poole DS: Diagnosis Discharge Diagnosis (1) Chest pain: Status: Acute (2) Hypothyroidism: Status: Acute DS: Summary Hospital Course Hospital Course: HPI on admission by Dr. Martin 03/15: Chief Complaint: Chest pain 48-year-old female past medical history of thyroid cancer status post resection hypertension who presents to the emergency room with acute onset of left-sided chest pain at 08:30 this morning. She states the pain lasts for approximately 10-15 minutes and then resolved. She denies any other associated cardiac symptoms. Workup in the emergency room failed to demonstrate any significant abnormalities and EKG or enzymes however patient will be admitted overnight for observation enzymes will be trended in a.m. Hospital course: Pt placed on observation due to chest pain, atypical in nature. Described 15-20 minutes of sharp stabbing, non radiating chest pain over the L breast that resolved without recurrence. Now describes a soreness around the breast and left side of back and worsens with touch and deep inspiration. No associated symptoms. 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 EKG non ischemic. At this time, cardiology not recommending any inpt work up. Recommending outpt stress test. Patient is requesting discharge home. At this time, patient is medically cleared for discharge and is given prescription of ibuprofen and recommended warm compresses/heating pad for atypical chest pain, likely musculoskeletal in nature. She is advised to return to the ED for any severe chest pains or pains not resolving with medication. Work note provided and referral placed to cardiology for outpt exercise stress test. Continue levothyroxine for hypothyroidism and losartan for hypertension. Status at Discharge Functional status at discharge: independent ambulation Overall status at discharge: patient is progressing back to baseline Time Attestation Discharge Coordination Time (in mins): 20 Quality: Safe Use of Opioids Does Pt have an Active Cancer Diagnosis on the Problem List?: No Quality: Stroke Does the patient have a stroke diagnosis?: No Physical Exam 2 Vital Signs: Vital Signs: Last Vital Signs Temp 98.1 F 03/15/24 19:53 Pulse 55 03/15/24 19:53 Resp 20 03/15/24 19:53 BP 162/68 H 03/15/24 19:53 Pulse Ox 99 03/15/24 19:53 O2 Del Method Room Air 03/15/24 19:53 BMI result Body Mass Index 29.0 Constitutional - Awake and Alert, No apparent distress Eyes - PERRLA, EOMI Cardiovascular - S1S2, RRR, No edema Respiratory - Normal lung expansion, Normal respiratory effort, No respiratory distress, CTA bilaterally Chest- reproducible ttp across left chest, no crepitus DS: Data Data Completed and Pending Labs on day of discharge: Laboratory Results - last 24 hr 03/15/24 03/15/24 09:57 13:08 WBC 5.9 RBC 4.01 L Hgb 12.9 Hct 37.4 MCV 93.3 MCH 32.2 MCHC 34.5 RDW 13.2 Plt Count 219 MPV 9.4 Immature Gran % (Auto) 0.3 Neut % (Auto) 48.4 Lymph % (Auto) 42.3 H [place] % (Auto) 6.8 Eos % (Auto) 1.9 Baso % (Auto) 0.3 Lymph # (Auto) 2.5 [place] # (Auto) 0.4 Eos # (Auto) 0.1 Baso # (Auto) 0.0 Abs Immat Gran (auto) 0.02 Absolute Neuts (auto) 2.8 Absolute Nucleated RBC 0.000 Nucleated RBC % (auto) 0.0 PT 12.0 INR 1.0 D-Dimer High Sensitivty 224 Sodium 141 Potassium 4.0 Chloride 109 H Carbon Dioxide 26 Anion Gap 10 L BUN 9 Creatinine 0.70 Estim Creat Clear Calc 92.8 Estimated GFR > 60 Random Glucose 106 Calcium 9.6 Magnesium 2.0 Total Bilirubin 0.3 AST 18 ALT 12 Alkaline Phosphatase 76 Troponin I High Sens 3.7 5.3 Total Protein 7.4 Albumin 4.5 Discharge Plan Discharge Anticipated Discharge Date/Time: 03/15/24 20:17 Patient Disposition: Home, Self-Care Discharge Diagnosis: Atypical chest pain Referrals: Emelia Presley MD [Primary Care Provider] - 1 Week Cielo,Junaid, MD [Physician] - 1 Week (Needs outpt exercise stress test. Observed in hospital for chest pain) Discharge Medications: New ibuprofen 600 mg tablet 600 mg PO Q6H PRN (Reason: pain) Qty: 30 0RF Continued losartan 50 mg tablet 50 mg PO DAILY levothyroxine 175 mcg tablet 175 mcg PO MOTUWETHFRSA@0630 levothyroxine 175 mcg tablet 350 mcg PO WILDER@0630 melatonin 5 mg Tablet 5 mg PO BEDTIME PRN (Reason: Insomnia) Discharge Orders: Discharge Order (Routine); Ordered 03/15/24 Ordered By: Padmini Poole Diet: Advance to usual diet Activity on Discharge: As tolerated Stand Alone Forms: Patient Portal Discharge page, Work/School Release Print Language: Hungarian Care Plan Goals: Prevent recurrent chest pain Out of abundance of caution, have outpatient exercise stress test performed with cardiology who will call to set this up Health Concerns: Atypical chest pain Plan of Treatment: Ibuprofen every 6 hours as needed for pain. Recommend warm compresses/heating pad Follow up for outpatient stress test. If you do not hear from cardiology to set this up, please call them [phone] Please return to the ED for any recurrent chest pain Assessment: See above, see discharge summary Patient Instructions: Noncardiac Chest Pain (DC)
[2024-03-15 21:32] VITALS: BP 162/68; PULSE 55; RESP 20; TEMP 36.7; O2SAT 99
== END 2024-03-15 20:56 | disposition home or self-care (01) ==
LOC: HO.ED 16:06 → HO.EDOVER 17:13 → HO.IMC 19:21 → HO.EDOVER 19:41
PROVIDERS: Emergency Medicine; Physician Assistant Medical; Admitting Provider Hospitalist; Emergency Provider Emergency Medicine; PCP Internal Medicine; Visit Provider Hospitalist
DX: R07.9 Chest pain, unspecified (principal); E89.0 Postprocedural hypothyroidism; Z85.850 Personal history of malignant neoplasm of thyroid; R61 Generalized hyperhidrosis; R11.0 Nausea; I10 Essential (primary) hypertension; Z84.89 Family history of other specified conditions
CPT/HCPCS: 36415; 71046; 80053; 83735; 84484; 85025; 85379; 85610; 93005; 96372; 99221; 99285; J1650

== ENCOUNTER → 2024-03-15 09:38 | Outpatient (BNV) | payer MEDICARE, MEDICAID, SELFPAY | PROVIDERS: Emergency Provider Emergency Medicine; PCP Internal Medicine; Visit Provider Hospitalist | DX: R07.9 Chest pain, unspecified (principal); E89.0 Postprocedural hypothyroidism | CPT/HCPCS: 99222; 99499 ==

== ENCOUNTER 2024-03-21 14:30 | Outpatient (AMB) | payer MEDICARE, MEDICAID, SELFPAY ==
--- NOTE | 2024-03-21 14:52 | MHC.OFFVIS ---
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 Intake Note: New patient [facility] [place] ED dx chest pain had stabing chest pain for about 15-20min not chest pain since Contract Writer Required: No Allergies No Known Allergies [NKA] Allergy (Verified 03/15/24 09:26) Medication List - Last Reconciled 03/21/24 by Junaid Buck MD ibuprofen 600 mg PO Q6H PRN levothyroxine 175 mcg PO MOTUWETHFRSA@0630 levothyroxine 350 mcg PO WILDER@0630 losartan 50 mg PO DAILY melatonin 5 mg PO BEDTIME PRN HPI Comments Details: No read was referred here for evaluation of precordial chest pain after recent presentation to the emergency room. She was scheduled to be admitted at that point time although decision subsequently was made to send her home. Patient is a 48-year-old female with family history of coronary artery disease, hypertension present hospital with sudden-onset chest pain while she was working. 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 She then continues to have worsening symptoms. Symptoms are worse with deep breathing. She also got diaphoretic and short of breath. She eventually told her manage her who then called 911 inpatient presented to the emergency room. EN route she got sublingual nitroglycerin which seems to have helped her symptoms but then she had persistent soreness in her chest which persisted for many hours. She came to the emergency room which EKG shows no ischemia. Troponin x2 were negative. Subsequently patient was discharged home. She has been taking all her medications. She is worried about this chest pain. No significant chest pain since then including with her usual activity. COUNT INCLUDES THE [facility] Surgical History Hx of thymectomy Family History Father No problems noted. 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 Review of Systems Const Denies chills, Denies fatigue, Denies fever(s), Denies frequent falls, Denies weakness, Denies weight gain and Denies weight loss ENT Denies dizziness Card Denies chest pain, Denies leg edema, Denies lightheadedness, Denies palpitations, Denies dyspnea, Denies dyspnea on exertion, Denies orthopnea and Denies other (loss of consciousness) Resp Denies cough, Denies dyspnea and Denies dyspnea on exertion GI Denies hematochezia and Denies change in stool character Musc Denies abnormal gait, Denies muscle weakness, Denies numbness, Denies radiating pain into limb and Denies tingling Neuro Denies abnormal gait, Denies dizziness, Denies frequent falls, Denies numbness, Denies tingling and Denies weakness Endo Denies fatigue and Denies palpitations Physical Exam Vital Signs: Last Vital Signs Pulse 64 03/21/24 14:53 BP 144/82 H 03/21/24 14:53 BMI result Body Mass Index 28.9 Const General: cooperative, comfortable, no acute distress, alert, awake and Physically active Nutritional Appearance: average body habitus Orientation/consciousness: patient oriented x3 Limitations: no limitations HEENT Head: Yes normocephalic and Yes atraumatic Neck Neck: Yes trachea midline, Yes supple and Yes no JVD Resp Effort & Inspection: normal respiratory effort Auscultation: clear to auscultation bilaterally Cardio Jugular venous distension: no JVD Palpation: normal PMI Rate: regular rate Rhythm: regular rhythm Heart sounds: S1 normal heart sound present, S2 normal heart sound present, no click, no gallops, no murmurs and no rubs GI Auscultation: normal bowel sounds Skin General skin exam: no rashes or lesions noted Neuro General: patient oriented x3 and no focal motor deficits Extrem General: Yes no clubbing, cyanosis or edema Psych Appearance: grossly normal Assessment & Plan Assessment & Plan (1) Atypical chest pain: Code(s): R07.89 - Other chest pain Category: Medical Plan: Atypical chest pain in this middle-aged woman with risk factors of hypertension family history. Symptoms are quite atypical for myocardial ischemia. Although given her multiple risk factors symptoms that are concerning to her will pursue treadmill stress test to evaluate for myocardial ischemia. If she does well and has no ischemia would further suggest her to go for screening for coronary atherosclerosis with coronary calcium score. This was discussed with her. She is understandable. Currently blood pressure is well optimized. Stress mitigation strategies were discussed. Further treatment including statin therapy based on her test results. Will follow up in the clinic if need be. Thank you for allowing me to partake in his care Orders: Orders CA stress test 03/21/24 R07.89 - Other chest pain CT Coronary Calcium Score 4 Weeks R07.89 - Other chest pain Coding Level of Care Code New Pt Level 3 (46070) Diagnoses Atypical chest pain R07.89
[2024-03-21 14:53] VITALS: BP 144/82; PULSE 64; BMI 28.9
== END 2024-03-21 15:16 | disposition home or self-care (01) ==
PROVIDERS: PCP Internal Medicine; Visit Provider Internal Medicine Cardiovascular Disease
DX: R07.89 Other chest pain (principal)
CPT/HCPCS: 99203

== ENCOUNTER → 2024-03-21 14:30 | Outpatient (BNVA) | payer MEDICARE, MEDICAID, SELFPAY | PROVIDERS: PCP Internal Medicine; Visit Provider Internal Medicine Cardiovascular Disease | DX: R07.89 Other chest pain (principal) | CPT/HCPCS: 99202 ==

== ENCOUNTER → 2024-04-04 08:40 | Outpatient (REF) | payer MEDICARE, MEDICAID, SELFPAY ==
--- NOTE | 2024-04-04 08:48 | CA_ITS ---
Acquisition Time: 2024-04-04 09:01:49 Total Exercise Time: 00:06:51 Test Indications: CP Medications: SEE H Protocol: JOSE Max HR: 144 BPM 85% of Pred: 169 BPM Max BP: 214/100 mmHG Max Work Load: 8.3 METS Exercise stress test with exercise 6 min 51 sec of Jose protocol, achieving 85% MPHR, with report of 3/10 left chest pressure with radiation to left arm with tingling in left hand, without arrythmia, with BP at baseline 148/100 then with exercise BP max 214/100, with borderline EKG changes noted inferolateral leads which corrects quickly in recovery. Her symptoms gradually improved in recovery. Her BP returned to baseline. Exercise nuclear stress test ordered. Pt did not take any of her am medications prior to this test. Instructed to take her usual antihypertensive agent prior to next stress test. Test reviewed with Dr Buck. Referred By: Junaid Buck Overread By: LUCIO CARBONE
== END ==
LOC: HO.CARD 08:40
PROVIDERS: PCP Internal Medicine; Visit Provider Internal Medicine Cardiovascular Disease
DX: R07.89 Other chest pain (principal)
CPT/HCPCS: 93017

== ENCOUNTER → 2024-04-04 08:48 | Outpatient (BNV) | payer MEDICARE, MEDICAID, SELFPAY | PROVIDERS: PCP Internal Medicine; Visit Provider Nurse Practitioner Family | DX: R07.9 Chest pain, unspecified (principal) | CPT/HCPCS: 93016; 93018 ==

== ENCOUNTER 2024-09-06 08:23 | Emergency (ER) | payer MEDICARE, MEDICAID, SELFPAY ==
[2024-09-06 08:25] VITALS: BP 142/79; PULSE 72; RESP 16; TEMP 37.1; O2SAT 99; BMI 27.7
[2024-09-06 08:40] LABS: MANUAL DIFF FLAG NO
[2024-09-06 08:42] LABS: Basophils Percent Auto 0.2 % (0-2); Hematocrit 42.2 % (37.0-47.0); Hemoglobin 14.7 g/dl (12.0-16.0); Imm Gran Abs Auto 0.01 X10*3/uL (0.00-0.03); Imm Gran Pct Auto 0.2 % (0.0-0.4); Lymphocytes Absolute Auto 1.6 X10*3/uL (1.2-4.9); Lymphocytes Percent Auto 40.2 % (20-40); Mean Corpuscular HGB Conc 34.8 g/dl (31.0-35.0); Mean Platelet Volume 9.8 fL (9.4-12.3); Monocytes Absolute Auto 0.7 X10*3/uL (0.1-1.2); Monocytes Percent Auto 17.2 % (2-11); Neutrophils Absolute Auto 1.7 x10*3/uL (2.0-8.3); Neutrophils Percent Auto 42.2 % (45-73); Platelet Count 177 X10*3/uL (160-400); Red Blood Count 4.74 X10*6/uL (4.20-5.50); Red Cell Distribution Width 13.4 % (11.0-16.0); White Blood Count 4.1 X10*3/uL (4.8-10.8)
[2024-09-06 08:57] LABS: Alanine Aminotransferase 45 U/L (0-31); Albumin Level 4.6 g/dL (3.5-5.0); Alkaline Phosphatase 87 U/L (39-117); Anion Gap 12 (12-20); Aspartate Amino Transferase 44 U/L (5-31); Bilirubin Total 0.4 mg/dL (0.0-1.0); Blood Urea Nitrogen 14 mg/dL (9-16); Calcium 9.2 mg/dL (8.4-10.2); Carbon Dioxide 26 mmol/L (22-29); Chloride 106 mmol/L (96-108); Creatinine Clr Calc Pharmacy 82.7; Estimated Glomerular Filt Rate > 60; Glucose Random 113 mg/dL (60-115); Potassium 3.3 mmol/L (3.3-5.1); Sodium 141 mmol/L (135-145); Total Protein 8.3 g/dL (6.5-8.0)
--- NOTE | 2024-09-06 09:04 | ED.GENADULT ---
HPI - General Adult General Chief complaint: Dizziness Stated complaint: Flu +, dizziness Time Seen by Provider: 09/06/24 09:03 Source: patient, RN notes reviewed and old records reviewed Mode of arrival: ambulatory Limitations: no limitations History of Present Illness ED Provider: Everardo DIXON narrative: Patient is a 49-year-old female presenting to the emergency department with complaint of nausea, vomiting and diarrhea since 10pm last night. Patient began feeling sick on Thursday, went to an urgent care on Thursday where she was diagnosed with influenza as well as a left ear infection. She was sent home with zofran and antibiotics. Reports having no appetite since Thursday. Yesterday was able to eat an ice pop, but then began vomiting shortly after. States she had multiple episodes of vomiting and diarrhea overnight. Denies hematemesis, hematochezia, melena. Reports feeling lightheaded. Used zofran with little relief. complaint: vomiting and diarrhea Onset (ago): hour(s) Related Data Home Medications ?Medication ?Instructions ?Recorded ?Confirmed levothyroxine 175 mcg tablet 175 mcg PO MOTUWETHFRSA@0630 03/15/24 03/21/24 levothyroxine 175 mcg tablet 350 mcg PO WILDER@0630 03/15/24 03/21/24 losartan 50 mg tablet 50 mg PO DAILY 03/15/24 03/21/24 melatonin 5 mg tablet 5 mg PO BEDTIME PRN Insomnia 03/15/24 03/21/24 Previous Rx's ?Medication ?Instructions ?Recorded ibuprofen 600 mg tablet 600 mg PO Q6H PRN pain #30 tabs 03/15/24 metoclopramide HCl 10 mg tablet 10 mg PO Q8H PRN nausea and 09/06/24 vomiting #10 tabs Allergies Allergy/AdvReac Type Severity Reaction Status Date / Time No Known Allergies [NKA] Allergy Verified 09/06/24 08:28 Review of Systems Review of Systems: As per HPI Yes all other systems are reviewed and are negative Constitutional: Constitutional: Reports as per HPI PMF Past Medical History Surgical History Hx of thymectomy Family History Family History Father No problems noted. Mother HTN (hypertension) History of heart attack Social History Social History Unable to assess alcohol history related to: Unknown Patient Tobacco Use Status: Current someday Tobacco user Advance Directives: No Advance Directives Information Provided: Yes Current occupation: Rt handed Physical Exam ED Vital Signs: Vital Signs - 24 hr 09/06/24 08:25 09/06/24 10:25 Temperature 98.7 F 99.3 F Pulse Rate 72 61 Respiratory Rate 16 16 Blood Pressure 142/79 H 136/74 Pulse Oximetry 99 97 Oxygen Delivery Method Room Air Room Air BMI result Body Mass Index 27.7 Vital signs have been reviewed and appear to be correct. Blood pressure normal. Heart rate normal. Respiratory rate normal. Temperature normal. Oxygen saturation normal. Const General: cooperative, healthy appearing and no acute distress Orientation/consciousness: oriented to person, oriented to place, oriented to time and patient oriented x3 Limitations: no limitations HENMT Head: Yes normocephalic and Yes atraumatic Ears: external ears normal General nose exam: Normal external nose present Face and sinus: Yes face symmetric Mouth: oropharynx normal and moist mucous membranes Throat: Yes uvula midline Eyes Pupils: Equal, round and reactive pupils present Neck Neck: Yes normal visual inspection and Yes supple Resp Effort & Inspection: normal respiratory effort and able to speak in complete sentences Auscultation: clear to auscultation bilaterally Cardio Rate: regular rate Rhythm: regular rhythm Heart sounds: S1 normal heart sound present and S2 normal heart sound present GI Palpation (GI): Soft to palpation and nontender Auscultation: normoactive bowel sounds General: Yes no CVA tenderness Back/Spine/Pelvis Back: no CVA tenderness Skin General skin exam: elasticity normal and turgor normal Neuro General: oriented to person, oriented to place, oriented to time, patient oriented x3, moves all extremities, no focal motor deficits and CN's II-XI intact bilaterally Cranial nerves: Yes Equal, round and reactive pupils present Cognition (Neuro): normal cognition Extrem General: Yes full ROM, Yes no pedal edema and Yes no calf tenderness Psych Mental Status: mental status grossly normal Affect: normal affect Thought process: Normal thought process present Medications Administered Discontinued Medications Generic Name Dose Route Start Last Admin Trade Name Freq PRN Reason Stop Dose Admin Sodium Chloride 1,000 mls @ 999 mls/hr 09/06/24 09:15 09/06/24 11:52 Ns IV 09/06/24 10:15 Infused .Q1H1M VIVIANA Infusion Sodium Chloride 1,000 mls @ 999 mls/hr 09/06/24 12:15 09/06/24 14:06 Ns IV 09/06/24 13:15 Infused .Q1H1M VIVIANA Infusion Ondansetron HCl 4 mg 09/06/24 09:11 09/06/24 09:40 Ondansetron Hcl 4 Mg/2 Ml Vial IVPUSH 09/06/24 09:12 4 mg ONCE ONE Administration Prochlorperazine Edisylate 10 mg 09/06/24 12:03 09/06/24 12:12 Prochlorperazine Edisylate 10 Mg/2 Ml Vial IVPUSH 09/06/24 12:04 10 mg ONCE ONE Administration Medical Decision Making Medical Decision Making [facility] Narrative: Patient is a 49-year-old female presenting to the emergency department with complaint of nausea, vomiting and diarrhea since 10pm last night. On exam patient is awake, A+Ox3, VS WNL, afebrile, normal neurological exam without focal deficits, physical exam findings as above. Given reported symptoms and physical exam findings, initial differential includes but is not limited to influenza, adverse medication reaction, gastroenteritis, electrolyte abnormality. Labs notable for no leukocytosis, no anemia, no electrolyte abnormalities, mild transaminitis likely due to vomiting. Patient reports significant improvement in symptoms after IV fluids and antiemetics, able to tolerate PO challenge. Feel she is stable for discharge at this time. Will send prescription for reglan, advised patient not to use this in combination with the zofran. Follow up with PCP as needed. Progress from clear liquids to bland diet back to regular diet as tolerated. Return precautions discussed. Patient verbalized understanding of and agreement with plan. Differential Diagnosis Differential Diagnoses: The differential diagnosis associated with the presentation includes As per [facility] Admission/Observation Consideration of admission/observation: Escalation of care including admission/observation considered Patient would have been admitted to the hospital had their work up had any findings where hospital admission was appropriate and their clinical presentation warranted hospital admission. Lab Data [facility] Lab Attestation statement: I reviewed the patient's lab results. As per [facility] 09/06/24 08:32 09/06/24 08:32 Labs: Lab Results 09/06/24 Range/Units 08:32 WBC 4.1 L (4.8-10.8) X10*3/uL RBC 4.74 (4.20-5.50) X10*6/uL Hgb 14.7 (12.0-16.0) g/dl Hct 42.2 (37.0-47.0) % MCV 89.0 (80.0-98.0) fL MCH 31.0 (27.0-33.0) pg MCHC 34.8 (31.0-35.0) g/dl RDW 13.4 (11.0-16.0) % Plt Count 177 (160-400) X10*3/uL MPV 9.8 (9.4-12.3) fL Immature Gran % (Auto) 0.2 (0.0-0.4) % Neut % (Auto) 42.2 L (45-73) % Lymph % (Auto) 40.2 H (20-40) % Henry % (Auto) 17.2 H (2-11) % Eos % (Auto) 0.0 (0-4) % Baso % (Auto) 0.2 (0-2) % Lymph # (Auto) 1.6 (1.2-4.9) X10*3/uL Henry # (Auto) 0.7 (0.1-1.2) X10*3/uL Eos # (Auto) 0.0 (0.0-0.4) X10*3/uL Baso # (Auto) 0.0 (0.0-0.2) X10*3/uL Abs Immat Gran (auto) 0.01 (0.00-0.03) X10*3/uL Absolute Neuts (auto) 1.7 L (2.0-8.3) x10*3/uL Absolute Nucleated RBC 0.000 (0.0-0.012) X10*3/uL Nucleated RBC % (auto) 0.0 (0.0-0.2) /100WBC Sodium 141 (135-145) mmol/L Potassium 3.3 (3.3-5.1) mmol/L Chloride 106 (96-108) mmol/L Carbon Dioxide 26 (22-29) mmol/L Anion Gap 12 (12-20) BUN 14 (9-16) mg/dL Creatinine 0.76 (0.5-1.4) mg/dL Estim Creat Clear Calc 82.7 Estimated GFR > 60 Random Glucose 113 (60-115) mg/dL Calcium 9.2 (8.4-10.2) mg/dL Total Bilirubin 0.4 (0.0-1.0) mg/dL AST 44 H (5-31) U/L ALT 45 H (0-31) U/L Alkaline Phosphatase 87 (39-117) U/L Total Protein 8.3 H (6.5-8.0) g/dL Albumin 4.6 (3.5-5.0) g/dL External Record Review External record reviewed: Inpatient record, Office record and Outpatient record Prescription Management I considered prescription management with: Other Discharge Plan Discharge Clinical Impression: Nausea, vomiting, and diarrhea Patient Disposition: Home, Self-Care Instructions: Acute Nausea and Vomiting (ED), Acute Diarrhea (ED) Additional Instructions: You have been evaluated in the emergency department today for nausea, vomiting, and diarrhea. Your evaluation suggests that your symptoms are most likely due to a viral illness which will improve on it's own with rest and fluids. Remember to drink plenty of fluids at home. You are being prescribed metoclopramide which you can use as per the prescription instructions for nausea. DO NOT TAKE THIS IN COMBINATION WITH THE ONDANSETRON, use one or the other. Please follow up with your primary care provider within two days. Return to the emergency department if you experience worsening or uncontrolled pain, inability to tolerate fluids by mouth, difficulty breathing, fevers 100.4? F or greater, recurrent vomiting, or any other concerning symptoms. Prescriptions: New metoclopramide HCl 10 mg tablet 10 mg PO Q8H PRN (Reason: nausea and vomiting) Qty: 10 0RF No Action losartan 50 mg tablet 50 mg PO DAILY levothyroxine 175 mcg tablet 175 mcg PO MOTUWETHFRSA@0630 levothyroxine 175 mcg tablet 350 mcg PO WILDER@0630 melatonin 5 mg Tablet 5 mg PO BEDTIME PRN (Reason: Insomnia) ibuprofen 600 mg tablet 600 mg PO Q6H PRN (Reason: pain) Qty: 30 0RF Stand Alone Forms: Work/School Release Print Language: Persian
--- OUTSIDE RECORDS SUMMARY | 2024-09-06 09:14 | XMS_ITS | Clinical Summary ---
Author Organization [facility] [address] [place] [address] [place] [phone] Phone Care Team Providers Care Set Decorator Name Role Phone Emelia Donato MD Primary Care Prov ider Allergies Active Allergy Reactions Criticality Noted Date Comments Amlodipine 05/27/2021 Leg swelling when increased from 5 mg to 7.5 mg Medications diclofenac (VOLTAREN) 1 % topical gel APPLY 4 GRAMS TOPICALLY NEEDED FOR PAIN 2 Active fluticasone propionate (FLONASE) 50 mcg/actuation nasal spray 2 Sprays by Each Nare route daily for 30 days. 3 Active levothyroxine (SYNTHROID, LEVOTHROID) 175 mcg tablet TAKE 1 TABLET BY MOUTH ONCE DAILY FROM THURSDAY- Y AND 2 TABS ON Thursday 3 Active losartan (COZAAR) 50 mg tablet TAKE 1 TABLET BY MOUTH EVERY DAY 90 tablet 1 5 Active Active Problems Problem Noted Date Diagnosed Date Esophageal thickening 03/29/2024 Gastritis 03/29/2024 GERD (gastroesophageal reflux disease) 4 Hiatal hernia 03/29/2024 Helicobacter positive gastritis 03/29/2024 Overview (03/29/2024): Positive biopsy from endoscopy performed on September 05 with Hoarseness of voice 03/29/2024 Thyroid cancer 03/29/2024 Overview (03/29/2024): BRAF [id number] Positive Benign essential hypertension 08/27/2020 Overview (03/29/2024): Confirmed with BPs at home. 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 Overview (03/29/2024): Neg cxr 2017- born [place]- reports BCG vaccine as Callus of foot 04/01/2016 Depression 05/21/2010 Immunizations Name Administration Dates Next Due H1N1 Inj Preservative Free 04/25/2009 Influenza Quadravalent, MDCK , 0.5ml, preservative free (Flucelvax) 6mo and older 04/18/2021 Influenza trivalent, with pr eservative (Fluzone; Afluria) 6mo and older 04/01/2016,2010,04/25/2009 Tdap Tetanus diptheria acell ular pertussis (Boostrix; Adacel) 7yo and older 12/04/2020,2010 Surgical History Surgery Date Site/Laterality Comments SECTION 2009, 2010 PROCEDURE: CT DELIVERY ONLY CHOLECYSTECTOMY PROCEDURE: HISTORICAL CHOLECYSTECTOMY OTHER SURGICAL HISTORY 2008 PROCEDURE: HISTORY OTHER; COMMENT: salpingectomy to prevent ectopic preg (IVF) OTHER SURGICAL HISTORY 08/01/2019 Right PROCEDURE: CT TOTAL THYROID LOBECTOMY UNI W/WO ISTHMUSECTOMY; COMMENT: [facility] - [facility] ESOPHAGOGASTRODUODENOSCOPY PROCEDURE: CT EGD TRANSORAL BIOPSY SINGLE/MULTIPLE; COMMENT: Performed on September 06, [address] Ann OTHER SURGICAL HISTORY 02/11/2021 PROCEDURE: CT THYROIDECTOMY RMVL REMAINING TISS FLWG PRTL RMVL; COMMENT: Left thyroid lobectomy/completion total thyroidectomy by Dr. 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 Positive ANEL (antinuclear antibody) 03/21/2019 DX:Positive ANEL (antinuclear antibody) Hoarseness of voice DX:Hoarsenes s of voice Thyroid cancer (CMS/HCC) DX:Thyr oid cancer (HCC) Esophageal thickening DX:Esophag eal thickening Hiatal hernia DX:Hiatal hernia GERD (gastroesophageal reflux disease) DX:GERD (gastroesophageal reflux disease) Gastritis DX:Gastritis Helicobacter positive gastritis DX:Helicobacter positive gastritis; COMMENT: Positive biopsy from endoscopy performed on September 05 with History of COVID-19 03/24/2021 DX:History o f COVID-19 History of COVID-19 04/07/2023 DX:History o f COVID-19 Family History Medical History Relation Name Comments Arthritis Maternal Grandmother 80's Colon cancer Maternal Grandmother 80's Other: rectal ca Maternal Grandmother 80's Other: Osteoarthritis Mother Rheum arthritis Mother fibromyalgia Breast cancer Neg Hx Ovarian cancer Neg Hx Pancreatic cancer Neg Hx Prostate cancer Neg Hx Uterine cancer Neg Hx Relation Name Status Comments Father Alive Maternal Grandmother 80's Alive dm ii, htn, rectal CA Mother Alive Hypercholestero lemia Social History Tobacco Use Types Packs/Day Years Used Date Smoking Tobacco: Every Day Cigarettes 0.6 5.4 Started: 04/27/2019 Smokeless Tobacco: Never Tobacco Cessation:Ready to Q uit: Not Asked; Counseling Given: Not Answered Alcohol Use Standard Drinks/Week Comments Yes 0 (1 standard drink = 0.6 oz pur e alcohol) occ Comments No Sex and Gender Information Value Date Recorded Sex Assigned at Not on file Legal Sex Female 6:16 AM EST Gender Identity Not on file Sexual Orientation Not on file Obstetrics History Para Term AB IAB SAB Ectopic Multiple Livin g Live Births 2 3 Date Outcome GA Total Labor Labor/2nd/3rd Weight Sex Type Anes PTL Aaliyah A1 A5 Name Clin Comments section x2 Last Filed Vital Signs Vital Sign Reading Time Taken Comments Blood Pressure 162/96 05/04/2024 9:00 AM EST Pulse 59 05/04/2024 9:00 AM EST Temperature - - Respiratory Rate 16 05/04/2024 9:00 AM EST Oxygen Saturation - - Inhaled Oxygen Concentration - - Weight 75.8 kg (167 lb) 05/04/2024 9:00 AM EST Height 160 cm (5' 3 ) 05/04/2024 9:00 AM EST Body Mass Index 29.58 05/04/2024 9:00 AM EST Plan of Treatment Upcoming Encounters Date Type Department Care Team (Late st Contact Info) Description 10/05/2024 9:00 AM EDT Office Visit Urogynecology - [address] [phone] Brittny Us MD [address] [place] [address] 01/17/2025 7:30 AM EDT Office Visit [facility] - [address] [phone] Emelia Donato MD [address] [place] [address] 03/16/2025 1:00 PM EDT Appointment Radiology Department - [address] [phone] Health Maintenance Due Date Last Done Comments Hepatitis B Vaccines (1 of 3 - 19+ 3-dose series) 1992 Pneumococcal Vaccine: 50+ Years (1 of 2 - PCV) 1992 Pneumococcal Vaccine: Pediatrics (0 to 5 Years) and At-Risk Patients (6 to 64 Years) (1 of 2 - PCV) 1992 Zoster Vaccines (1 of 2) 1992 Medicare Annual Wellness Visit 06/07/2022 Social Influencers of Health Screening 06/07/2022 Cervical Cancer Screening: Pap Smear 07/19/2022 07/19/2019, 11/11/2016 COVID-19 Vaccine ( season) 2024 06/27/2021, 12/06/2020, 11/15/2020 Influenza Vaccine (#1) 2024 , 04/01/2016, 2010, Additional history exists Depression Screening 05/18/2024 05/18/2023 Hypertension/CHF/CAD Annual BMP Blood Test 12/16/2024 12/17/2023, 12/17/2023 Breast Cancer Screening 03/07/2026 03/07/20, 03/07/2024, 11/13/2022, Additional history exists Colorectal Cancer Screening: FIT-DNA (Cologuard) 06/23/2026 06/23/2023, 06/23/2023 Cholesterol Screening (Lipid Panel) 12/16/2028 12/17/2023, 12/17/2023 DTaP,Tdap,and Td Vaccines (3 - Td or Tdap) 12/04/2030 12/04/2020, 2010 HIV Screening Completed 10/28/2021 Hepatitis C Screening Completed 10/28/2021 HIB Vaccines Aged Out No longer eligi ble based on patient's age to complete this topic HPV Vaccines Aged Out No longer eligi ble based on patient's age to complete this topic Hepatitis A Vaccines Aged Out No long er eligible based on patient's age to complete this topic IPV Vaccines Aged Out No longer eligi ble based on patient's age to complete this topic MMR Vaccines Aged Out No longer eligi ble based on patient's age to complete this topic Meningococcal ACWY Vaccine Aged Out N o longer eligible based on patient's age to complete this topic Meningococcal B Vacine Aged Out No lo nger eligible based on patient's age to complete this topic RSV Immunization Patients Under 20 months Aged Out No longer eligible based on patient's age to complete this topic Varicella Vaccines Aged Out No longer eligible based on patient's age to complete this topic Procedures Procedure Name Priority Date/Time Associated Diagnosis Comments SCREENING MAMMOGRAPHY BI 2-VIEW BREAST INC CAD Routine 03/07/2024 1:15 PM EDT Encounter for screening mammogram for malignant neoplasm of breast ANNUAL BMP BLOOD TEST Routine 12/17/2023 LIPID PANEL Routine 12/17/2023 FIT-DNA Routine 06/23/2023 DEPRESSION SCREENING Routine 05/18/2023 HEPATITIS C SCREENING Routine 10/28/2021 HIV SCREENING Routine 10/28/2021 PAP SMEAR Routine 07/19/2019 from Last 3 Months or Most Recently Relevant to Health Maintenance Results * SCREENING MAMMOGRAPHY BI 2-VIEW BREAST INC CAD (03/07/2024 1:15 PM EDT) Anatomical Region Laterality Modality Radiographic Eva ging 11/13/2022 8:56 AM EDT Narrative 03/08/2024 9:01 AM EDT This is a summary report. The complete report is available in the patient's medical record. If you cannot access the medical record, please contact the sending organization for a detailed fax or copy. BILATERAL 3D DIGITAL SCREENING MAMMOGRAM History: Routine screening. ??No current breast complaints. Comparison: Multiple priors dating back to 10/31/2020 Technique: Bilateral full-field digital 3D mammography was performed using standard CC and MLO projections, bilateral exaggerated cc views CAD was used to evaluate this mammogram. Findings: Density: ??There are scattered areas of fibroglandular density-B RIGHT: No suspicious masses, groups of microcalcification or areas of architectural distortion identified. Stable typically benign parenchymal asymmetries LEFT: No suspicious masses, groups of microcalcifications or areas of architectural distortion identified. Stable typically benign parenchymal asymmetries IMPRESSION: : 1. ??No mammographic evidence of malignancy. BI-RADS Category 2 benign findings Recommendation: Routine annual screening mammography is recommended [facility] [address] [id number] Breast density: The breasts have scattered areas of fibroglandular density. 5 year breast cancer risk assessment 1.0 % Lifetime breast cancer risk assessment 9.4 % Breast cancer risk category Low (<15%) Location: [facility], [address] [place] [address], [id number], [phone] Procedure Note Nicolette Adair MD - 04/13/2024 This is a summary report. The complete report is available in thepatient's medical record. If you cannot access the medical record, pleasecontact the sending organization for a detailed fax or copy. BILATERAL 3D DIGITAL SCREENING MAMMOGRAM History: Routine screening. No current breast complaints. Comparison: Multiple priors dating back to 10/31/2020 Technique: Bilateral full-field digital 3D mammography was performed usingstandard CC and MLO projections, bilateral exaggerated cc views CAD was used to evaluate this mammogram. Findings: Density: There are scattered areas of fibroglandular density-B RIGHT: No suspicious masses, groups of microcalcification or areas ofarchitectural distortion identified. Stable typically benign parenchymalasymmetries LEFT: No suspicious masses, groups of microcalcifications or areas ofarchitectural distortion identified. Stable typically benign parenchymalasymmetries IMPRESSION: : 1. No mammographic evidence of malignancy. BI-RADS Category 2 benign findings Recommendation: Routine annual screening mammography is recommended [address] [id number] Breast density: The breasts have scattered areas of fibroglandulardensity. 5 year breast cancer risk assessment 1.0 % Lifetime breast cancer risk assessment 9.4 % Breast cancer risk category Low (<15%) Location: [facility], [address] [place] [address], [id number], [phone] Emelia Donato MD IMG XR PROCEDURES Final Result * Annual BMP Blood Test (12/17/2023) Annual BMP Blood Test abstracted Historical Provider HEALTH MAINTENANCE Final Result * (ABNORMAL) Lipid panel (12/17/2023) [facility] LDL/HDL Ratio 4 0 - 4 Triglycerides 173(A) 0 - 150 mg/dL Cholesterol 235(A) 0 - 200 mg/dL HDL 59 >=40 mg/dL LDL Cholesterol 142(A) 0 - 100 mg/dL Blood Venous blood specimen / Unknown Result [facility] Provider LAB BLOOD ORDERABLES Mirna l Result * FIT-DNA (Cologuard) (06/23/2023) [facility] Colorectal Cancer Screening: FIT-DNA (Cologuard) no interpreta tion,abstr acted Result [facility] Provider HEALTH MAINTENANCE Final Result * Depression Screening (05/18/2023) [facility] Depression Screening abstracted Result [facility] Provider HEALTH MAINTENANCE Final Result * HIV Screening (10/28/2021) [facility] HIV Screening abstracted Result [facility] Provider HEALTH MAINTENANCE Final Result * Hepatitis C Screening (10/28/2021) [facility] Hepatitis C Screening abstracted Result [facility] Provider HEALTH MAINTENANCE Final Result * Pap Smear (07/19/2019) [facility] Pap smear no interpreta tion,abstr acted Result [facility] Provider HEALTH MAINTENANCE Final Result from Last 3 Months or Most Recently Relevant to Health Maintenance Insurance MEDICARE MEDICAID - [place] Care Teams Set Decorator Relationship Specialty Start Date End Date Emelia Donato MD PCP - General Internal Medicine 01/27/22
[2024-09-06] MEDS: 0.9 % Sodium Chloride 1,000 ML 999 ML IV ×2 (09:40→12:17)
[2024-09-06] MEDS: ondansetron HCL 4 MG/2 ML VIAL IVPUSH (09:40)
[2024-09-06 10:25] VITALS: BP 136/74; PULSE 61; RESP 16; TEMP 37.4; O2SAT 97
[2024-09-06] MEDS: Prochlorperazine Edisylate 10 MG/2 ML VIAL IVPUSH (12:12)
[2024-09-06 14:52] VITALS: BP 136/74; PULSE 61; RESP 16; TEMP 37.4; O2SAT 97
== END 2024-09-06 14:52 | disposition home or self-care (01) ==
PROVIDERS: Emergency Provider Student in an Organized Health Care Education/Training Program; PCP Internal Medicine
DX: R42 Dizziness and giddiness (principal); R11.2 Nausea with vomiting, unspecified; Z79.899 Other long term (current) drug therapy; F17.210 Nicotine dependence, cigarettes, uncomplicated
CPT/HCPCS: 36415; 80053; 85025; 96361; 96374; 96375; 99284; J0737; J2405